=== PATIENT | male | born 2005 | race Native Hawaiian/Other Pacific Islander ===

== ENCOUNTER 2024-05-24 15:50 | Emergency (ER) | payer SELFPAY ==
[2024-05-24 16:04] VITALS: BP 119/91; PULSE 126; RESP 22; TEMP 37.8; O2SAT 99; BMI 30.2
--- NOTE | 2024-05-24 16:11 | DI.RAD.S_ITS ---
PROCEDURE: XR CHEST 1V INDICATIONS: suspected sepsis TECHNIQUE: One view of the chest was acquired. COMPARISON: None. FINDINGS: Surgical changes and devices: None. Lungs and pleura: Lungs are clear. No pleural effusions or pneumothorax. Mediastinum: Mediastinal contours appear normal. Heart size is normal. Bones and chest wall: No suspicious bony lesions. Overlying soft tissues appear unremarkable. IMPRESSION: No acute cardiopulmonary abnormality is seen. Dictated by: Esteban Ward M.D. on 05/24/2024 at 16:36 Approved by: Esteban Ward M.D. on 05/24/2024 at 16:36
--- NOTE | 2024-05-24 16:28 | EKG_ITS ---
[address] [address] Test Date: 2024-05-24 Pat Name: Татьяна Floyd Department: Room: Gender: Male [employer] Administrator: DEBBI : 2005 Requested By: Order Number: [id number] Reading MD: Eliot Garcia Measurements Intervals Shiner Rate: 120 P: 23 MO: 122 QRS: -16 QRSD: 84 T: 15 QT: 304 QTc: 429 Interpretive Statements Sinus tachycardia Electronically Signed On 05-24-2024 18:20:31 PST by Eliot Garcia
[2024-05-24] MEDS: SODIUM CHLORIDE 0.9% 1,000 ML 1000 ML IV (16:33)
[2024-05-24 16:42] LABS: INR 1.2 (0.9-1.3)
[2024-05-24 16:44] LABS: PTT Partial Thromboplastin Tim 32 SECONDS (25.1-36.5)
[2024-05-24 16:45] LABS: Alanine Aminotransferase 12 IU/L (<50); Albumin 4.3 g/dL (3.5-5.0); Albumin Globulin Ratio 1.2 (1.0-2.8); Alkaline Phosphatase 74 U/L (38-126); Aspartate Aminotransferase 32 IU/L (17-59); BUN Creatinine Ratio 7.7 (6-22); Bilirubin Total 0.6 mg/dL (0.2-1.3); Blood Urea Nitrogen 5 mg/dL (9-20); Calcium 8.4 mg/dL (8.4-10.2); Carbon Dioxide 18 mmol/L (22-32); Chloride 109 mmol/L (98-107); Estimated Glomerular Filt Rate > 60 mL/min (>60); Globulin 3.6 g/dL (1.7-4.1); Glucose 94 mg/dL (70-100); HEMOLYSIS < 15 (0-50); Lipase 62 U/L (23-300); Potassium 3.4 mmol/L (3.4-5.1); Sodium 139 mmol/L (137-145); Total Protein 7.9 g/dL (6.3-8.2)
[2024-05-24 16:46] LABS: Lactate (Lactic Acid) 0.8 mmol/L (0.7-2.1)
[2024-05-24 16:53] LABS: Add Manual Diff / Slide Review NO; Basophils Absolute Auto 0 /uL (0-100); Basophils Percent Auto 0.8 % (0-2); Eosinophils Absolute Auto 0 /uL (0-450); Eosinophils Percent Auto 0.1 % (2-4); Hematocrit 27.2 % (41-53); Hemoglobin 8.1 g/dL (13.5-17.5); Lymphocytes Absolute Auto 800 /uL (1100-4500); Lymphocytes Percent Auto 19.6 % (25-40); Mean Corpuscular HGB Conc 29.9 % (30-36); Mean Corpuscular Hemoglobin 17.3 PG (26-34); Monocytes Absolute Auto 500 /uL (0-900); Monocytes Percent Auto 11.1 % (3-14); Neutrophils Absolute Auto 2800 /uL (1500-7000); Neutrophils Percent Auto 68.4 % (50-75); Platelet Count 465 X10^3/uL (150-400); Red Blood Cell Count 4.69 X10^6/uL (4.5-5.9); Red Cell Distribution Width 17.3 % (11.6-14.8); White Blood Cell Count 4.1 X10^3/uL (4.5-11.0)
[2024-05-24 17:02] LABS: Procalcitonin 0.162 ng/mL (<0.5)
[2024-05-24 17:04] LABS: Microcytosis 2+
[2024-05-24 17:10] LABS: COVID-19 CEPHEID 4-PLEX PCR Negative (Negative); Influenza A - CEPHEID Flu A NEGATIVE (NEGATIVE); Influenza B - CEPHEID Flu B POSITIVE (NEGATIVE); Respiratory Syncytial Virus Negative (Negative)
[2024-05-24 17:45] VITALS: BP 120/64; PULSE 106; RESP 20; TEMP 38.6; O2SAT 99
[2024-05-24 18:00] VITALS: BP 122/61; PULSE 103; RESP 35; O2SAT 99
[2024-05-24] MEDS: IBUPROFEN 400 MG TABLET 800 MG PO (18:08)
[2024-05-24 18:30] VITALS: BP 119/63; PULSE 107; RESP 30; O2SAT 97
--- NOTE | 2024-05-24 18:41 | ED_ITS ---
HPI - General Adult General Chief complaint: Upper Respiratory Symptoms Stated complaint: fever, cough, chills Time Seen by Provider: 05/24/24 18:07 Source: patient Mode of arrival: Ambulatory History of Present Illness HPI narrative: otherwise healthy 18-year-old woman with continued upper respiratory complaints for the last 8 weeks. This morning she had a fever at home to 101.9 with increasing cough and hot flashes today. Related Data Allergies Allergy/AdvReac Type Severity Reaction Status Date / Time No Known Drug Allergies Allergy Verified 05/24/24 18:06 Review of Systems Review of Systems Narrative: Pertinent positive and negative findings as per HPI Patient History Social History Smoking Status: Current some day smoker Smoking Status: Current some day smoker Exam Initial Vital Signs Initial Vital Signs: Vital Signs Temperature 100.1 F H 05/24/24 16:04 Pulse Rate 126 H 05/24/24 16:04 Respiratory Rate 22 05/24/24 16:04 Blood Pressure 119/91 H 05/24/24 16:04 Pulse Oximetry 99 05/24/24 16:04 Oxygen Delivery Method Room Air 05/24/24 16:04 General: Pale, febrile butin no acute distress. Able to give a complete and coherent history. Well-nourished well-developed HEENT: Moist mucous membranes, mildly injected sclera bilaterally Neck: no cervical adenopathy Respiratory: Lungs are clear to auscultation, no wheezing no rales no rhonchi. Full and symmetrical air movement Cardiac: tachycardic but otherwise regular, no murmurs appreciated Abdomen: Soft, nontender, Skin: Warm and dry, no rashes Neurologic: Grossly neurologically intact with no obvious asymmetries or abnormalities Psych: Cooperative, appropriate insight and affect Course Orders Ordered: ED Orders 05/24/24 16:11 XR chest 1V Stat EKG-12 Lead Stat RT Consult Eval and Treat NOW 05/24/24 16:23 Complete Blood Count AUTO DIFF Stat Comprehensive Metabolic Panel Stat Covid-19 + FLU A/B + RSV - PCR Stat Lactate (Lactic Acid) Stat Lipase Stat PTT Partial Thromboplastin Tu Stat Procalcitonin Stat Prothrombin Time INR Stat 05/24/24 17:16 Blood Culture Stat Ondansetron HCl (Ondansetron 4 Mg/2 Ml Inj) 4 mg IV NOW PRN PRN Reason: Nausea And Vomiting Ondansetron HCl (Ondansetron 4 Mg Odt) 4 mg SL NOW PRN PRN Reason: Nausea And Vomiting Discontinued Medications Acetaminophen (Acetaminophen 325 Mg Tablet) 975 mg PO NOW ONE Stop: 05/24/24 17:53 Sodium Chloride (Normal Saline 0.9%) 1,000 mls @ 1,000 mls/hr IV BOLUS ONE Stop: 05/24/24 17:10 Last Infusion: 05/24/24 17:47 Dose: Infused Documented By: Admin: 05/24/24 16:33 Dose: 1,000 mls/hr Documented By: RAFY Ibuprofen (Ibuprofen 400 Mg Tablet) 800 mg PO NOW ONE Stop: 05/24/24 17:53 Last Admin: 05/24/24 18:08 Dose: 800 mg Documented By: FRANK Vital Signs Vital signs: Vital Signs - 8 hr 05/24/24 16:04 05/24/24 17:45 Temperature 100.1 F H 101.4 F H Pulse Rate 126 H 106 H Respiratory Rate 22 20 Blood Pressure 119/91 H 120/64 Pulse Oximetry 99 99 Oxygen Delivery Method Room Air Room Air Medical Decision Making Lab Data 05/24/24 16:23 05/24/24 16:23 Labs: Lab Results 05/24/24 Range/Units 16:23 WBC 4.1 L (4.5-11.0) X10^3/uL RBC 4.69 (4.5-5.9) X10^6/uL Hgb 8.1 L (13.5-17.5) g/dL Hct 27.2 L (41-53) % MCV 58.0 L (80-100) fL MCH 17.3 L (26-34) PG MCHC 29.9 L (30-36) % RDW 17.3 H (11.6-14.8) % Plt Count 465 H (150-400) X10^3/uL Neut % (Auto) 68.4 (50-75) % Lymph % (Auto) 19.6 L (25-40) % Fannin % (Auto) 11.1 (3-14) % Eos % (Auto) 0.1 L (2-4) % Baso % (Auto) 0.8 (0-2) % Neut # (Auto) 2800 (4011-3251) /uL Lymph # (Auto) 800 L (9917-0485) /uL Fannin # (Auto) 500 (0-900) /uL Eos # (Auto) 0 (0-450) /uL Baso # (Auto) 0 (0-100) /uL RBC Morphology See below Microcytosis 2+ H PT 14.0 H (9.4-12.5) SECONDS INR 1.2 (0.9-1.3) APTT 32 (25.1-36.5) SECONDS Sodium 139 (137-145) mmol/L Potassium 3.4 (3.4-5.1) mmol/L Chloride 109 H (98-107) mmol/L Carbon Dioxide 18 L (22-32) mmol/L BUN 5 L (9-20) mg/dL Creatinine 0.65 L (0.66-1.25) mg/dL Estimated GFR > 60 (>60) mL/min BUN/Creatinine Ratio 7.7 (6-22) Glucose 94 (70-100) mg/dL Lactate 0.8 (0.7-2.1) mmol/L Calcium 8.4 (8.4-10.2) mg/dL Total Bilirubin 0.6 (0.2-1.3) mg/dL AST 32 (17-59) IU/L ALT 12 (<50) IU/L Alkaline Phosphatase 74 (38-126) U/L Total Protein 7.9 (6.3-8.2) g/dL Albumin 4.3 (3.5-5.0) g/dL Globulin 3.6 (1.7-4.1) g/dL Albumin/Globulin Ratio 1.2 (1.0-2.8) Lipase 62 (23-300) U/L Procalcitonin 0.162 (<0.5) ng/mL SARS-CoV-2 (PCR) Negative (Negative) Influenza A (RT-PCR) Flu a negative (NEGATIVE) Influenza B (RT-PCR) Flu b positive H (NEGATIVE) RSV (PCR) Negative (Negative) MDM Narrative Medical decision making narrative: CC: cough intermittently for 8 weeks. Fever developing today with hot flashes Data collected from: patient Differential considered: recurrent upper respiratory infections, she was tachycardic on arrival and sepsis is at least considered, acute viral syndrome, bacterial pneumonia physical exam: Pale, warm to the touch consistent with noted fever, lungs are completely clear,, dry cough noted Lab Test results independently reviewed as above. Pertinent findings: CBC is notable for white count slightly low at 4.1, moderate anemia at 8.1 and 27.2 ( MCV is 58)and thrombocytosis with platelets at 465. chemistries show normal renal function. Remainder of electrolytes and liver studies are unremarkable lipase is normal procalcitonin is not elevated Imaging studies independently reviewed: chest x-ray does not have significant infiltrates Treatments: a L of fluid, Tylenol, ibuprofen, IV Zofran Discussion: 18-year-old woman with no significant medical history. Sounds like she has had sick potential viruses and now is testing positive for influenza B which goes along with acutely worsening and fevers returning today. there was no evidence of bacterial pneumonia, sepsis, wheezing or findings that would require further evaluation, imaging or hospitalization. Care is reviewed with the patient. Reviewed timeline and symptoms of recovery. She is given a work note. She is safe for discharge Discharge Plan Departure Patient Disposition: Home Clinical Impression: Influenza Anemia Qualifiers: Anemia type: unspecified type Qualified Code(s): D64.9 - Anemia, unspecified Instructions: Anemia, DI for Influenza -- Adult Activity Restrictions/Additional Instructions: thank you for coming in today you have influenza B, the actual flu typically this causes very high fevers and utter misery. Your workup today does not show signs of bacterial infection or need for antibiotics. Please use ibuprofen and Tylenol to help control the fevers and body aches. Please make sure you are keeping well hydrated also noted on your blood work, you are significantly anemic. I would recommend that you schedule an appointment with your primary care physician to follow up on why your blood count is so low. In otherwise healthy 18-year-old woman the most likely cause is very heavy menstrual cycles, this does need to be further evaluated. If you find that you are getting worse or develop any new symptoms, please feel free to return to the emergency department for further evaluation. Referrals: Akil,MD [place] [Primary Care Provider] - Stand Alone Forms: Patient Portal/API/Survey, Work Release Note
[2024-05-24 19:00] VITALS: PULSE 120; RESP 39; O2SAT 99
[2024-05-24 19:01] VITALS: BP 117/61; PULSE 118; RESP 37; O2SAT 98
== END 2024-05-24 19:07 | disposition home or self-care (01) ==
PROVIDERS: Emergency Medicine; Emergency Provider Emergency Medicine
DX: J10.1 Influenza due to other identified influenza virus with other respiratory manifestations (principal); D64.9 Anemia, unspecified
CPT/HCPCS: 0241U; 36415; 71045; 80053; 83605; 83690; 84145; 85025; 85610; 85730; 87040; 93005; 96360; 99284